=== PATIENT | male | born 1980 | race Caucasian/White ===

== ENCOUNTER 2017-06-28 19:01 | Emergency (ER) | payer BC ==
[~2017-06-28] VITALS: Ht 182.9 cm; Wt 125.0 kg
[2017-06-29 03:32] LABS: BASOPHILS % 0.7 % (0.0-2.0); EOSINOPHILS % 2.4 % (0.0-5.0); HEMATOCRIT. 43.8 % (42.0-52.0); HEMOGLOBIN. 14.9 g/dL (14.0-18.0); LYMPHOCYTES % 42.7 % (20.0-50.0); MEAN CORPUSCULAR HEMOGLOBIN 29.8 pg (28.0-32.0); MEAN CORPUSCULAR VOLUME 87.4 fL (80.0-94.0); MEAN PLATELET VOLUME 8.1 fl (7.4-10.4); MONOCYTES % 7.2 % (2.0-8.0); PLATELET 217 x1000/uL (130-400); RED BLOOD CELL COUNT 5.01 mill/uL (4.7-6.1)
[2017-06-29 03:41] LABS: CARBON DIOXIDE 28 mEq/L (21-32); CHLORIDE 109 mEq/L (98-107); ETHANOL BLOOD < 10 mg/dL
[2017-06-29 09:01] LABS: *AMPHETAMINES SCREEN URINE NEGATIVE (NEGATIVE); *BARBITURATES SCREEN URINE PRESUMTIVE POSITIVE (NEGATIVE); *BENZODIAZEPINES SCREEN URINE NEGATIVE (NEGATIVE); *COCAINE SCREEN URINE NEGATIVE (NEGATIVE); CANNABINOID URINE SCREEN NEGATIVE (NEGATIVE); METHADONE URINE SCREEN NEGATIVE (NEGATIVE); OPIATES URINE SCREEN NEGATIVE (NEGATIVE); PHENCYCLIDINE URINE SCREEN NEGATIVE (NEGATIVE)
[2017-06-29 11:00] VITALS: BP 134/77
== END 2017-06-29 18:33 | disposition home or self-care (01) ==
LOC: ER 19:08
DX: R45.851 Suicidal ideations (principal); R07.9 Chest pain, unspecified
CPT/HCPCS: 36415; 80048; 80305; 80307; 80329; 85025; 93005; 99285; G0482; Z7610